=== PATIENT | male | born 1995 | race Two or more races ===

== ENCOUNTER 2016-03-18 04:30 | Emergency (ER) | payer SELFPAY ==
--- NOTE | 2016-03-18 07:30 | RAD ---
Exam: Two-view chest COMPARISON: 10/24/2015 INDICATION: Chest pain after working out. Finding: PA and lateral views of the chest were obtained. Cardiac silhouette is within normal limits. Lungs are normally inflated. There is no focal airspace disease or pleural effusion. Bones of the chest wall within normal limits. IMPRESSION: Negative two-view chest.
== END 2016-03-18 06:07 | disposition home or self-care (01) ==
LOC: ED 04:30
DX: R07.9 Chest pain, unspecified (principal); F41.9 Anxiety disorder, unspecified